=== PATIENT | male | born 1985 | race African-American/Black ===

== ENCOUNTER 2018-02-21 22:43 | Emergency (ER) | payer SELFPAY ==
[2018-02-21 23:53] LABS: ABS Basophils 0.1 10^3/ul (0-0.2); ABS Eosinophils 0.1 10^3/ul (0-0.6); ABS Lymphocytes 2.3 10^3/ul (1.0-4.8); ABS Monocytes 0.4 10^3/ul (0-0.8); ABS Neutrophils 1.7 10^3/ul (1.5-7.7); ABS Nucleated RBC 0 10^3/ul; Eosinophil % 1.9 % (0-6); Hematocrit 39 % (42-52); Hemoglobin 13.4 g/dl (14.0-18.0); Lymphocyte % 51.8 % (25-47); Mean Corpuscular HGB Conc 34 g/dl (31-36); Mean Corpuscular Hemoglobin 32 pg (27-31); Mean Corpuscular Volume 93 fL (80-94); Mean Platelet Volume 10.1 um3 (7.4-10.4); Nucleated Red Blood Cells % 0.1; Platelet Count 154 10^3/ul (150-450); Red Blood Count 4.22 10^6/ul (4.0-5.4); Red Cell Distribution Width 13 % (10.5-15); White Blood Count 4.5 10^3/ul (3.5-10.8)
[2018-02-22 00:11] LABS: EGFR Non-African American 89.1 (>60)
[2018-02-22 01:22] VITALS: BP 115/77
--- NOTE | 2018-02-22 08:51 | RAD ---
INDICATION: Chest pain, sore throat. COMPARISON: No relevant prior exams available on the [facility] PACS for comparison. TECHNIQUE: Dual energy PA and routine lateral views of the chest were obtained. REPORT: Clear lungs and pleural spaces. Negative for pneumothorax. The heart, pulmonary vasculature, and mediastinal contours are unremarkable. Unremarkable osseous structures and soft tissue contours. IMPRESSION: No evidence for acute intrathoracic disease.
--- NOTE | 2018-03-04 01:17 | ED ---
Long [facility] Elizabeth, scribed for Tomas Treviño MD on 02/21/18 at 2331 . HPI Chest Pain - HPI Summary HPI Summary: This patient is a 32 year old M BIBA to [facility] with a chief complaint of chest wall pain since 3-4 days ago. The patient notes that he noticed the pain after he was lifting a heavy laundry bag. The patient notes that that pain feels like a crook in his chest. The patient rates the pain 5/10 in severity. Symptoms aggravated by movement and sneezing. Symptoms alleviated by nothing. Patient reports dizziness, fast palpitations, and feeling like he was having a panic attack. The patient also notes feeling like he has a lump in his throat, but denies any airway compromise. - History of Current Complaint Chief Complaint: EDChestWallPain Time Seen by Provider: 02/21/18 23:18 Hx Obtained From: Patient Onset/Duration: Started Days Ago - 3-4 days ago, Still Present Timing: Constant Initial Severity: Mild Current Severity: Mild Pain Intensity: 5 Pain Scale Used: 0-10 Numeric Character: Other: - feeling like a "crook" in his chest Aggravating Factor(s): Movement, Other: - sneezing Alleviating Factor(s): Nothing Associated Signs and Symptoms: Positive: Chest Pain - chest wall pain, Dizziness , Palpitations - Allergy/Home Medications Allergies/Adverse Reactions: Allergies Allergy/AdvReac Type Severity Reaction Status Date / Time No Known Allergies Allergy Verified 02/21/18 22:52 Home Medications: Home Medications NK [No Home Medications Reported] 02/21/18 [History Confirmed 02/21/18] PMH/Surg Hx/FS Hx/Imm Hx Endocrine/Hematology History: Denies: Hx Diabetes Respiratory History: Denies: Hx Asthma Opthamlomology History: Denies: Hx Legally Blind EENT History: Denies: Hx Deafness Psychiatric History: Denies: Hx Anxiety Infectious Disease History: No Infectious Disease History: Denies: Traveled Outside the [place] in Last 30 Days - Family History Known Family History: Positive: Other - CA (type unspecified) Negative: Cardiac Disease - Social History Alcohol Use: Occasionally Substance Use Type: Reports: Marijuana Smoking Status (MU): Never Smoked Tobacco Review of Systems Negative: Fever Negative: Epistaxis Positive: Palpitations, Chest Pain - chest wall pain Neurological: Other - dizziness All Other Systems Reviewed And Are Negative: Yes Physical Exam - Summary Physical Exam Summary: Appearance: Well-appearing, Well-nourished, lying in bed comfortably Skin: Warm, dry, no obvious rash Eyes: sclera anicteric, no conjunctival pallor ENT: mucous membranes moist, pharynx appears normal Neck: Supple, nontender Respiratory: Clear to auscultation, no signs of respiratory distress Cardiovascular: Normal S1, S2. No murmurs. Normal distal pulses in tibial and radial bilaterally. Abdomen: Soft, nontender, normal active bowel sounds present Musculoskeletal: Normal, Strength/ROM Intact Neurological: A&Ox3, awake and alert, mentation is normal, speech is fluent and appropriate Psychiatric: affect is normal, does not appear anxious or depressed Triage Information Reviewed: Yes Vital Signs On Initial Exam: Initial Vitals Pulse Resp BP Pulse Ox 71 20 124/75 98 02/21/18 22:50 02/21/18 22:50 02/21/18 22:50 02/21/18 22:50 Vital Signs Reviewed: Yes Diagnostics - Vital Signs Vital Signs Temp Pulse Resp BP Pulse Ox 02/21/18 22:52 98.2 F 66 19 124/75 98 02/21/18 22:50 71 20 124/75 98 - Laboratory Lab Results: Lab Results 02/21/18 02/21/18 Range/Units 23:45 23:45 WBC 4.5 (3.5-10.8) 10^3/ul RBC 4.22 (4.0-5.4) 10^6/ul Hgb 13.4 L (14.0-18.0) g/dl Hct 39 L (42-52) % MCV 93 (80-94) fL MCH 32 H (27-31) pg MCHC 34 (31-36) g/dl RDW 13 (10.5-15) % Plt Count 154 (150-450) 10^3/ul MPV 10.1 (7.4-10.4) um3 Neut % (Auto) 37.0 L (38-83) % Lymph % (Auto) 51.8 H (25-47) % Winston % (Auto) 8.0 H (0-7) % Eos % (Auto) 1.9 (0-6) % Baso % (Auto) 1.3 (0-2) % Absolute Neuts (auto) 1.7 (1.5-7.7) 10^3/ul Absolute Lymphs (auto) 2.3 (1.0-4.8) 10^3/ul Absolute Monos (auto) 0.4 (0-0.8) 10^3/ul Absolute Eos (auto) 0.1 (0-0.6) 10^3/ul Absolute Basos (auto) 0.1 (0-0.2) 10^3/ul Absolute Nucleated RBC 0 10^3/ul Nucleated RBC % 0.1 Sodium 137 L (139-145) mmol/L Potassium 3.4 L (3.5-5.0) mmol/L Chloride 104 (101-111) mmol/L Carbon Dioxide 27 (22-32) mmol/L Anion Gap 6 (2-11) mmol/L BUN 13 (6-24) mg/dL Creatinine 0.97 (0.67-1.17) mg/dL Est GFR ( Amer) 114.6 (>60) Est GFR (Non-Af Amer) 89.1 (>60) BUN/Creatinine Ratio 13.4 (8-20) Glucose 95 (70-100) mg/dL Calcium 8.6 (8.6-10.3) mg/dL Total Bilirubin 1.00 (0.2-1.0) mg/dL AST 23 (13-39) U/L ALT 14 (7-52) U/L Alkaline Phosphatase 28 L (34-104) U/L Troponin I 0.00 (<0.04) ng/mL Total Protein 6.8 (6.4-8.9) g/dL Albumin 3.8 (3.2-5.2) g/dL Globulin 3.0 (2-4) g/dL Albumin/Globulin Ratio 1.3 (1-3) Result Diagrams: 02/21/18 23:45 02/21/18 23:45 Lab Statement: Any lab studies that have been ordered have been reviewed, and results considered in the medical decision making process. - Radiology CXR Xray Interpretation: No Acute Changes - Normal CXR Radiology Interpretation Completed By: ED Physician - Dr. Treviño. Pending official report. - EKG 22:50 Cardiac Rate: NL - at 67 BPM EKG Rhythm: Sinus Rhythm ST Segment: Normal Ectopy: None EKG Interpretation: NSR, P waves, QRS complex, & T waves within nml limits, no ischemic changes Chest Pain Course/Dx - Course Assessment/Plan: This is a 32-year-old -[place] gentleman with a several day history of chest pain that does not sound anginal. It does rather sound musculoskeletal. Melina's visit was precipitated mainly by abrupt onset of symptoms of palpitations and anxiety which have since nearly resolved. His troponin, EKG, and chest x-ray are all normal. He is safe for discharge at this time. - Diagnoses Provider Diagnoses: Chest wall pain Discharge - Sign-Out/Discharge Documenting (check all that apply): Discharge/Admit/Transfer - Discharge Plan Condition: Good Disposition: HOME Patient Education Materials: Chest Wall Pain (ED) Referrals: No Primary Care Phys,NOPCP [Primary Care Provider] - - Billing Disposition and Condition Condition: GOOD Disposition: HOME The documentation as recorded by the [facility] Elizabeth accurately reflects the service I personally performed and the decisions made by me, Tomas Treviño MD.
== END 2018-02-22 01:24 | disposition home or self-care (01) ==
LOC: ED 22:43
DX: R07.89 Other chest pain (principal); R42 Dizziness and giddiness; R00.2 Palpitations
CPT/HCPCS: 36415; 71046; 80053; 84484; 85025; 93005; 99283